=== PATIENT | female | born 2000 | race Hispanic/Latino ===

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

== ENCOUNTER 2021-03-25 05:28 | Emergency (ER) | payer OTHER, SELFPAY ==
--- OUTSIDE RECORDS SUMMARY | 2021-03-25 05:30 | XMS REPORT | Continuity of Care Document ---
:2000 Author Organization [facility] t Address [address] [place] [address] Dr. Nugent [address] [place] [id number] Care Team Providers Name Role Phone Unavailable Unavailable Unavailable Problems This patient has no known problems. Allergies, Adverse Reactions, Alerts This patient has no known allergies or adverse reactions. Medications This patient has no known medications. Procedures This patient has no known procedures. Results This patient has no known results.
[2021-03-25 06:27] LABS: Urine Blood 3+ (Negative); Urine Glucose Negative (Negative); Urine Protein 1+ (Negative); Urine Specific Gravity >=1.030 (1.005-1.030); Urine pH 5.5 (5.0-7.0)
--- NOTE | 2021-03-25 07:09 | EDPHYS ---
Physician Documentation [facility] Name: Debby Jin Age: 20 yrs Sex: Female : 2000 Arrival Date: 03/25/2021 Time: 05:33 Bed 18 Private MD: ED Physician Iliana Davis HPI: 03/25 06:03 This 20 yrs old Female presents to ER via Ambulatory with complaints of Fever, ma2 Headache, Abdominal Pain. 06:03 The patient reports fever, not measured (subjective). Onset: The symptoms/episode ma2 began/occurred gradually, 2 day(s) ago. Associated signs and symptoms: Pertinent positives: cough, diarrhea, Pertinent negatives: altered mental status, chest pain, diarrhea, night sweats, sinus drainage. Severity of symptoms: At their worst the symptoms were mild in the emergency department the symptoms are unchanged. The patient has not experienced similar symptoms in the past. 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 - Social history:: Smoking status: Patient denies any tobacco usage or history of. - Family history:: not pertinent. ROS: 06:03 Constitutional: Negative for fever, chills, and weight loss. ma2 06:03 All other systems are negative. Exam: 06:03 Constitutional: This is a well developed, well nourished patient who is awake, alert, ma2 and in no acute distress. Head/Face: Normocephalic, atraumatic. Eyes: Pupils equal round and reactive to light, extra-ocular motions intact. Lids and lashes normal. Conjunctiva and sclera are non-icteric and not injected. Cornea within normal limits. Periorbital areas with no swelling, redness, or edema. ENT: Nares patent. No nasal discharge, no septal abnormalities noted. Tympanic membranes are normal and external auditory canals are clear. Oropharynx with no redness, swelling, or masses, exudates, or evidence of obstruction, uvula midline. Mucous membranes moist. Neck: Trachea midline, no thyromegaly or masses palpated, and no cervical lymphadenopathy. Supple, full range of motion without nuchal rigidity, or vertebral point tenderness. No Meningismus. Chest/axilla: Normal chest wall appearance and motion. Nontender with no deformity. No lesions are appreciated. Cardiovascular: Regular rate and rhythm with a normal S1 and S2. No gallops, murmurs, or rubs. Normal PMI, no JVD. No pulse deficits. Respiratory: Lungs have equal breath sounds bilaterally, clear to auscultation and percussion. No rales, rhonchi or wheezes noted. No increased work of breathing, no retractions or nasal flaring. Abdomen/GI: Soft, non-tender, with normal bowel sounds. No distension or tympany. No guarding or rebound. No evidence of tenderness throughout. Back: No spinal tenderness. No costovertebral tenderness. Full range of motion. Skin: Warm, dry with normal turgor. Normal color with no rashes, no lesions, and no evidence of cellulitis. MS/ Extremity: Pulses equal, no cyanosis. Neurovascular intact. Full, normal range of motion. Neuro: Awake and alert, GCS 15, oriented to person, place, time, and situation. Cranial nerves II-XII grossly intact. Motor strength 5/5 in all extremities. Sensory grossly intact. Cerebellar exam normal. Normal gait. Vital Signs: 05:45 BP 140 / 97; Pulse 134; Resp 20; Temp 99.5; Pulse Ox 99% on R/A; Weight 95.25 kg; em Height 5 ft. 4 in. (162.56 cm); 07:15 BP 137 / 85; Pulse 98; Resp 19; Temp 98.9; Pulse Ox 99% ; bp 05:45 Body Mass Index 36.05 (95.25 kg, 162.56 cm) em MDM: 05:58 Patient medically screened. ct2 06:03 Differential diagnosis: viral Infection, URI, bronchitis, UTI, gastroenteritis. ct2 07:07 Data reviewed: vital signs, nurses notes. Counseling: I had a detailed discussion with ma2 the patient and/or guardian regarding: the historical points, exam findings, and any diagnostic results supporting the discharge/admit diagnosis, the presence of at least one elevated blood pressure reading (>120/80) during this emergency department visit, the need for outpatient follow up. Response to treatment: the patient's symptoms have markedly improved after treatment. 08/31 06:27 Order name: Urine Dipstick-Ancillary; Complete Time: 06:38 EDMS 03/25 06:03 Order name: Urine Dipstick-Ancillary (obtain specimen); Complete Time: 07:01 ma2 03/25 07:20 Order name: Urine --Ancillary (enter results) bd Administered Medications: 07:00 Drug: Bactrim (trimethoprim-sulfamethoxazole) (160 mg-800 mg (DS) 1 tablet Route: PO; bs2 07:01 Follow up: Response: No adverse reaction bs2 Disposition Summary: 03/25/21 07:08 Discharge Ordered Location: Home ma2 Condition: Stable ma2 Diagnosis - Acute upper respiratory infection, unspecified ma2 - Acute cystitis ma2 Followup: ma2 - With: Private Physician - When: Tomorrow - Reason: Continuance of care Discharge Instructions: - Discharge Summary Sheet ma2 - Upper Respiratory Infection, Adult ma2 - Urinary Tract Infection, Adult ma2 Forms: - Medication Reconciliation Form ma2 - Work release form bp - Thank You Letter ma2 - Antibiotic Education ma2 - Prescription Opioid Use ma2 Prescriptions: - Bactrim DS 800-160 mg Oral Tablet - take 1 tablet by ORAL route every 12 hours for 5 days; 10 tablet; Refills: 0, ma2 Product Selection Permitted Signatures: Dispatcher [employer] Jensen Benson, RN RN Iliana Kelley MD MD ma2 Elizabeth Chiu RN RN bs2 Corrections: (The following items were deleted from the chart) 06:49 06:03 CORONAVIRUS+BRZ ordered. EDMT EDMS
--- NOTE | 2021-03-25 07:09 | ER ---
Nurse's Notes [facility] Name: Debby Jin Age: 20 yrs Sex: Female : 2000 Arrival Date: 03/25/2021 Time: 05:33 Bed 18 Private MD: Diagnosis: Acute upper respiratory infection, unspecified;Acute cystitis Presentation: 03/25 05:45 Chief complaint: Patient states: fever, headache, abdominal cramping, has an irregular em period, was tested yesterday at [facility] and was told to come here if symptoms do not get better, denies N/V/D or problems urinating. Coronavirus screen: Vaccine status: Patient reports receiving the 2nd dose of the covid vaccine. Ebola Screen: Patient negative for fever greater than or equal to 101.5 degrees Fahrenheit, and additional compatible Ebola Virus Disease symptoms Patient denies exposure to infectious person. Patient denies travel to an Ebola-affected area in the 21 days before illness onset. No symptoms or risks identified at this time. Initial Sepsis Screen: Does the patient meet any 2 criteria? No. Patient's initial sepsis screen is negative. Does the patient have a suspected source of infection? No. Patient's initial sepsis screen is negative. Risk Assessment: Do you want to hurt yourself or someone else? Patient reports no desire to harm self or others. Onset of symptoms was March 25, 2021. 05:45 Method Of Arrival: Ambulatory em 05:45 Acuity: SHERYL 3 em Triage Assessment: 06:46 Headache History: Denies prior headaches. General: Appears in no apparent distress. bs2 comfortable, obese, well groomed, well developed, well nourished. Pain: Pain currently is 6 out of 10 on a pain scale. Pain began gradually, 2-3 days ago. Also complains of no other associated symptoms. 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 - Social history:: Smoking status: Patient denies any tobacco usage or history of. - Family history:: not pertinent. Screenin:00 Abuse screen: Denies threats or abuse. Denies injuries from another. Nutritional bs2 screening: No deficits noted. Tuberculosis screening: No symptoms or risk factors identified. Fall Risk None identified. Assessment: 06:00 General: Appears in no apparent distress. comfortable, obese, well groomed, well bs2 developed, well nourished, Behavior is calm, cooperative, appropriate for age. Pain: Complains of pain in abdomen. Neuro: No deficits noted. Cardiovascular: Rhythm is sinus tachycardia. Respiratory: No deficits noted. GI: No deficits noted. : No signs and/or symptoms were reported regarding the genitourinary system. 07:15 Reassessment: PT D/C HOME AMBULATORY, DX WITH UTI AND URI. bp Vital Signs: 05:45 BP 140 / 97; Pulse 134; Resp 20; Temp 99.5; Pulse Ox 99% on R/A; Weight 95.25 kg; em Height 5 ft. 4 in. (162.56 cm); 07:15 BP 137 / 85; Pulse 98; Resp 19; Temp 98.9; Pulse Ox 99% ; bp 05:45 Body Mass Index 36.05 (95.25 kg, 162.56 cm) em ED Course: 05:33 Patient arrived in ED. bp1 05:48 Triage completed. em 05:49 Arm band placed on. em 05:58 Iliana Davis MD is Attending Physician. ma2 06:00 Patient has correct armband on for positive identification. Placed in gown. Bed in low bs2 position. 06:21 Elizabeth Chiu, MOAR is Primary Nurse. bs2 06:46 No provider procedures requiring assistance completed. bs2 07:15 Patient did not have IV access during this emergency room visit. bp Administered Medications: 07:00 Drug: Bactrim (trimethoprim-sulfamethoxazole) (160 mg-800 mg (DS) 1 tablet Route: PO; bs2 07:01 Follow up: Response: No adverse reaction bs2 Outcome: 07:08 Discharge ordered by . ma2 07:15 Discharged to home ambulatory. bp 07:15 Condition: stable 07:15 Discharge instructions given to patient, Instructed on discharge instructions, follow up and referral plans. medication usage, Demonstrated understanding of instructions, follow-up care, medications. 07:29 Patient left the ED. bp Signatures: Jensen Baires, OMAR RN em Espinoza Marin RN RN bp Iliana Davis MD MD ma2 Gina Eid Bridget, RN RN bs2 Corrections: (The following items were deleted from the chart) 06:49 06:21 CORONAVIRUS+ drawn and sent. bs2 EDMS
[2021-03-25] MEDS ORDERED: SMZ./TMP. 800/160 MG TABLET ONE (07:22)
[2021-03-25 07:47] VITALS: O2SAT 99
[2021-03-25 07:48] VITALS: BP 137/85; TEMP 98.9
[2021-03-25 07:55] LABS: Urine Specific Gravity/Preg >1.030 (1.005-1.030)
== END 2021-03-25 07:29 | disposition home or self-care (01) ==
LOC: ER 05:28
DX: J06.9 Acute upper respiratory infection, unspecified (principal); N30.00 Acute cystitis without hematuria; Z20.822 Contact with and (suspected) exposure to COVID-19
CPT/HCPCS: 81003; 81025; 99284; U0003